=== PATIENT | male | born 1985 | race African-American/Black ===

== ENCOUNTER 2017-01-01 21:51 | Emergency (ER) | payer OTHER ==
[~2017-01-01] VITALS: Ht 188 cm; Wt 72.6 kg
[2017-01-02] MEDS ORDERED: AUGMENTIN 875875 MG PO (01:14)
[2017-01-02] MEDS ORDERED: NORCO 5-325 TA1 EACH PO (01:14)
[2017-01-02] MEDS ORDERED: IBUPROFEN 600600 M1 PO (01:14)
[2017-01-02 01:36] VITALS: BP 126/64
== END 2017-01-02 01:36 | disposition home or self-care (01) ==
LOC: ER 21:51
DX: S81.012A Laceration without foreign body, left knee, initial encounter (principal); S81.812A Laceration without foreign body, left lower leg, initial encounter; S81.811A Laceration without foreign body, right lower leg, initial encounter; S81.032A Puncture wound without foreign body, left knee, initial encounter; S61.512A Laceration without foreign body of left wrist, initial encounter; W54.0XXA Bitten by dog, initial encounter; Y93.01 Activity, walking, marching and hiking; Y92.89 Other specified places as the place of occurrence of the external cause; Y99.8 Other external cause status

== ENCOUNTER 2017-01-05 15:32 | Emergency (ER) | payer OTHER ==
[~2017-01-05] VITALS: Ht 190.5 cm; Wt 72.6 kg
[~2017-01-05 15:32] MED LIST: AUGMENTIN 875875 MG PO; IBUPROFEN 600600 M1 PO; NORCO 5-325 TA1 EACH PO
[2017-01-05 16:37] VITALS: BP 127/78
== END 2017-01-05 16:38 | disposition home or self-care (01) ==
LOC: ER 15:32
DX: Z23 Encounter for immunization (principal)

== ENCOUNTER 2017-01-09 23:49 | Emergency (ER) | payer OTHER ==
[~2017-01-09] VITALS: Ht 190.5 cm; Wt 72.6 kg
[2017-01-10 01:25] VITALS: BP 127/79
== END 2017-01-10 01:25 | disposition home or self-care (01) ==
LOC: ER 23:49
DX: Z23 Encounter for immunization (principal)

== ENCOUNTER 2017-01-16 22:20 | Emergency (ER) | payer OTHER ==
[~2017-01-16] VITALS: Ht 190.5 cm; Wt 72.6 kg
[2017-01-16 22:26] VITALS: BP 129/79
== END 2017-01-16 22:53 | disposition home or self-care (01) ==
LOC: ER 22:20
DX: Z23 Encounter for immunization (principal); S71.112D Laceration without foreign body, left thigh, subsequent encounter; W54.0XXD Bitten by dog, subsequent encounter; Y92.89 Other specified places as the place of occurrence of the external cause; Y99.8 Other external cause status